=== PATIENT | female | born 1990 | race Caucasian/White ===

== ENCOUNTER 2016-11-30 05:28 | Day surgery (SDC) | payer OTHER ==
[~2016-11-30] VITALS: Ht 162.6 cm; Wt 66.0 kg
[~2016-11-30 05:28] MED LIST: LORYNA 3 MG-0.1 EACH PO; MOTRIN800 MG PO; ZOLOFT50 MG PO
[2016-11-30 05:43] VITALS: BP 113/65
[2016-11-30] MEDS ORDERED: PERCOCET 5/31 TABLET PO (08:07)
[2016-11-30 09:45] VITALS: BP 104/56
[2016-11-30 10:25] VITALS: BP 98/53
[2016-11-30 11:03] VITALS: BP 91/55
== END 2016-11-30 11:00 | disposition home or self-care (01) ==
LOC: SDC 05:28
PROC: 0UB74ZZ Excision of Bilateral Fallopian Tubes, Percutaneous Endoscopic Approach (ICD-10-PCS; principal; 2016-11-30)
DX: Z30.2 Encounter for sterilization (principal); F41.9 Anxiety disorder, unspecified; J45.909 Unspecified asthma, uncomplicated; K58.9 Irritable bowel syndrome, unspecified; Z80.3 Family history of malignant neoplasm of breast; Z82.5 Family history of asthma and other chronic lower respiratory diseases; Z82.0 Family history of epilepsy and other diseases of the nervous system
CPT/HCPCS: J0330; J0690; J1100; J1170; J1885; J2250; J2405; J2710; J2765; J3010